=== PATIENT | male | born 1950 ===

== ENCOUNTER → 2018-06-10 | Outpatient (CLI) | payer OTHER | LOC: BMCIMAGING 13:21 | PROVIDERS: ATTEND Physician Assistant | DX: M16.0 Bilateral primary osteoarthritis of hip (principal); Z87.81 Personal history of (healed) traumatic fracture ==

== ENCOUNTER → 2019-03-04 | Outpatient (CLI) | payer OTHER | LOC: BMCIMAGING 09:18 | PROVIDERS: ATTEND Physician Assistant | DX: M25.512 Pain in left shoulder (principal); M19.012 Primary osteoarthritis, left shoulder ==